=== PATIENT | female | born 2000 | race Caucasian/White ===

== ENCOUNTER 2021-07-11 10:07 | Emergency (ER) | payer OTHER, SELFPAY ==
[2021-07-11 10:07] VITALS: BP 126/78; PULSE 79; RESP 16; TEMP 36.6; BMI 36.0
--- NOTE | 2021-07-11 10:44 | CT_ITS ---
EXAM: CT ABDOMEN AND PELVIS WITHOUT INTRAVENOUS CONTRAST CLINICAL INDICATION: Left flank pain TECHNIQUE: Helically acquired images were obtained of the abdomen and pelvis without intravenous contrast. This CT exam was performed using one or more of the following dose reduction techniques: automated exposure control, adjustment of the mA and/or kV according to patient size, and/or use of iterative reconstruction technique. This report was created using [employer] report generation technology. COMPARISON: None. FINDINGS: LOWER THORAX: Unremarkable. Lung bases are clear. No cardiomegaly. No significant pericardial effusion. ABDOMEN: LIVER: Unremarkable. Homogeneous. GALLBLADDER AND BILE DUCTS: Unremarkable. No calcified gallstones. No gallbladder distention or wall edema. No intra- or extrahepatic biliary ductal dilation. PANCREAS: Unremarkable. No focal cystic mass. SPLEEN: Unremarkable. Normal size without focal cystic or solid mass. ADRENALS: Unremarkable. No nodules. KIDNEYS AND URETERS: Unremarkable. Normal renal size and position. No hydronephrosis. STOMACH AND BOWEL: Unremarkable. No stomach or bowel distention. No focal inflammatory change. PELVIS: APPENDIX: No evidence of acute appendicitis. BLADDER: Unremarkable. REPRODUCTIVE: Unremarkable as visualized. No mass. ABDOMEN and PELVIS: INTRAPERITONEAL SPACE: Unremarkable. No ascites or other fluid collection. No free air. BONES/JOINTS: Unremarkable. No suspicious lytic or blastic abnormality. SOFT TISSUES: Unremarkable. No discrete abdominal or pelvic wall hernia. VASCULATURE: Unremarkable. Abdominal aorta is non-dilated. LYMPH NODES: Unremarkable. No enlarged lymph nodes. CT/Abdomen/Pelvis without Cont IMPRESSION: No hydronephrosis or urinary tract calcifications. Electronically Signed: Sina Guillen MD ([place]) at 11:26 EDT , Service support ,
[2021-07-11] MEDS: 0.9% Normal Saline 1,000 ML 1000 ML IV (10:51)
[2021-07-11 10:56] LABS: Absolute Lymphocyte Count 2.43 X10^3/uL (0.83-4.51); Absolute Neutrophil Count 5.4 X10^3/uL (2.0-7.7); Basophil# 0.04 X10^3/uL; Basophil% 0.5 % (0-1); Eosinophil# 0.21 X10^3/uL; Eosinophils% 2.5 % (0-5); Hematocrit 42.3 % (37-47); Hemoglobin 13.7 g/dL (12.0-15.0); Lymphocyte # 2.43 X10^3/ul (0.83-4.51); Lymphocyte % 28.4 % (19-41); Mean Corp Hgb Conc 32.4 g/dL (32-36); Mean Corpuscular Hgb 29.5 pg (27.0-32.0); Mean Platelet Vol. 10.4 fl (6.2-12.0); Monocyte% 4.7 % (0-10); NRBC Flagged by Analyzer 0 % (0-5); Neutrophil # 5.39 X10^3/uL (2.7-7.7); Platelet Count 263 K/mm3 (150-450); RBC Distribution Width CV 12.8 % (11.6-14.6); RBC Distribution Width SD 42.4 fl (35.1-43.9); Red Blood Count 4.65 M/mm3 (4.2-5.4); White Blood Count 8.6 K/mm3 (4.4-11.0)
[2021-07-11 10:58] LABS: Mucous, Urine 0 SEEN /hpf (<or=2+); Red Blood Cells-Urine 0 SEEN /hpf (0-5)
[2021-07-11 11:00] LABS: Internal QC Validated? YES +Cl - CLEAR BKGD; Pregnancy, Serum, hCG Quali. NEGATIVE Negative
[2021-07-11 11:00] LABS: Color, Urine Yellow (Yellow); Glucose, Dipstick Normal (Normal); Ketone-Dipstick Negative (Negative); Leukocyte Esterase-Dipstick 500 /ul (Negative); Nitrite-Dipstick Negative (Negative); Occult Blood-Urine Negative /ul (Negative); Protein-Dipstick Negative (Negative); Urine Bilirubin Dipstick Negative (Negative); Urine Clarity Sl. Cloudy (Clear); Urine Urobilinogen Normal (Normal)
--- NOTE | 2021-07-11 11:03 | ED.VIS.GI ---
HPI HPI - GI History of Present Illness Chief Complaint: Flank Pain Informant: patient Abdominal Pain/Flank Pain Onset: Days (4-5) Context: Gradual Onset Timing: Continuous Quality: Cramping and Stabbing Location: LLQ and Left Flank Worsened by: Nothing Relieved by: - (Midol) Nausea/Vomiting/Emesis GI Symptom: Negative for Nausea and Vomiting Diarrhea/Melena/Hematochezia GI Symptom: Negative for Diarrhea, Melena and Hematochezia Associated Symptoms Associated Symptoms: Negative for Dysuria and Hematuria Narrative Narrative: Patient presents with left flank pain that has been getting worse over the last 4 to 5 days. Patient states that it is in her left lower flank and radiates to her left lower abdomen. Patient states that she took Midol yesterday which did help with the pain. Patient states she took it again today and had no improvement of her pain. Patient describes the pain as cramping and stabbing. Patient states it has been constant. Patient states it is gradually getting worse. Patient denies any nausea or vomiting. Patient denies any diarrhea or melena or hematochezia. Patient denies any dysuria or hematuria. Patient states she went to an urgent care today. Patient states she was told she had bacteria in her urine and was referred here for further testing. PFSH [facility] Medical History no medical history no medical history Home Medications ciprofloxacin HCl 500 mg PO BID #14 tablet 07/11/21 [Rx Last Taken Unknown] Allergy/AdvReac Type Severity Reaction Status Date / Time amoxicillin Allergy Hives Verified 07/11/21 10:10 Surgical History no surgical history no surgical history Social History (Updated 07/11/21 @ 11:[address] Alexandre Elder, DO) Smoking Status: Current every day smoker tobacco type: cigarettes Smoking packs per day: 1 Smoking cigarettes per day: 20.0 ROS ROS ED Constitutional Constitutional ED: Denies chills or fever(s) Eyes Eyes: Denies blurry vision or change in vision ENT ENT ED: Denies rhinorrhea or sore throat Cardiovascular Cardiovascular: Denies chest pain or palpitations Respiratory/Chest Respiratory/Chest: Denies cough or dyspnea Gastrointestinal Gastrointestinal: Reports abdominal pain; Denies nausea or vomiting Genitourinary Genitourinary ED: Denies dysuria or hematuria Musculoskeletal Musculoskeletal: Reports back pain; Denies neck pain Integumentary Denies abscess or rash Neurologic Neurologic: Denies headache(s) or weakness Allergic/Immunologic Allergic/Immunologic ED: Denies mouth swelling or urticaria EXAM Physical Exam Const Vital Signs: 07/11/21 10:07 07/11/21 12:07 Temperature 97.9 F Temperature Source Temporal Pulse Rate 79 Respiratory Rate 16 16 Blood Pressure 126/78 H Blood Pressure Mean 94 Positive well nourished and well developed General Appearance ED: well developed HEENT Reports moist mucous membranes Neck supple and no JVD Resp normal respiratory effort and clear to auscultation bilaterally Cardio regular rate, regular rhythm and no murmurs GI normal to inspection, nondistended, normoactive bowel sounds and non-distended Auscultation: normoactive bowel sounds Palpation: soft and tender LLQ and LUQ; Negative for guarding or rebound tenderness present Extremity normal to inspection General Extremety ED: Negative for edema or tenderness General Extremity: Negative for edema Neuro oriented x3, CN's II-XII intact bilaterally and no sensory deficits noted Sensorium / Orientation: alert Motor Exam: strength 5/5 throughout Psych mental status grossly normal Skin no rashes or lesions noted MDM MDM MDM Narrative Medical decision making narrative: Patient was given IV fluids here. CBC was within normal limits. Comprehensive metabolic profile was essentially within normal limits. Urinalysis shows leukocyte esterase of 500 with 25-50 white blood cells and 1+ bacteria. CT scan of the abdomen pelvis was obtained. There is no acute abnormality noted. There is no evidence of pyelonephritis on CT scan. Patient was advised of her findings. Patient was given her first dose of Cipro here. Patient was given a prescription for Cipro. Patient was instructed to drink plenty of fluids. Patient was instructed to follow-up with her primary care physician in 5 to 7 days. Patient understood and was agreeable with the plan. All questions were answered. Lab Data Attestation: I reviewed the patient's lab results. Labs: Laboratory Results - last 24 hr 07/11/21 07/11/21 07/11/21 10:25 10:35 10:35 WBC 8.6 RBC 4.65 Hgb 13.7 Hct 42.3 MCV 91.0 MCH 29.5 MCHC 32.4 RDW Std Deviation 42.4 RDW Coeff of Orestes 12.8 Plt Count 263 MPV 10.4 Immature Gran % (Auto) 0.900 Neut % (Auto) 63.0 Lymph % (Auto) 28.4 Wilkes % (Auto) 4.7 Eos % (Auto) 2.5 Baso % (Auto) 0.5 Absolute Neuts (auto) 5.4 Absolute Lymphs (auto) 2.43 Nucleated RBC % 0 Sodium 137 Potassium 3.7 Chloride 106 Carbon Dioxide 25.0 Anion Gap 6 BUN 10 Creatinine 0.74 Estim Creat Clear Calc 102.10 Est GFR (MDRD) Af Amer 124 Est GFR (MDRD) Non-Af 103 BUN/Creatinine Ratio 13.4 Glucose 124 H Calcium 8.4 L Total Bilirubin 0.30 AST 19 ALT 26 Alkaline Phosphatase 86 Total Protein 7.4 Albumin 3.4 Globulin 4.0 Albumin/Globulin Ratio 0.8 L Serum , Qual Urine Color Yellow Urine Clarity Sl. Cloudy Urine pH 6.0 Ur Specific [place] 1.010 Urine Protein Negative Urine Glucose (UA) Normal Urine Ketones Negative Urine Occult Blood Negative Urine Nitrite Negative Urine Bilirubin Negative Urine Urobilinogen Normal Ur Leukocyte Esterase 500 H Urine RBC 0 SEEN Urine WBC 25-50 SEEN Ur Squamous Epith Cells 0-5 SEEN Urine Bacteria 1+ Urine Mucus 0 SEEN 07/11/21 10:35 WBC RBC Hgb Hct MCV MCH MCHC RDW Std Deviation RDW Coeff of Orestes Plt Count MPV Immature Gran % (Auto) Neut % (Auto) Lymph % (Auto) Wilkes % (Auto) Eos % (Auto) Baso % (Auto) Absolute Neuts (auto) Absolute Lymphs (auto) Nucleated RBC % Sodium Potassium Chloride Carbon Dioxide Anion Gap BUN Creatinine Estim Creat Clear Calc Est GFR (MDRD) Af Amer Est GFR (MDRD) Non-Af BUN/Creatinine Ratio Glucose Calcium Total Bilirubin AST ALT Alkaline Phosphatase Total Protein Albumin Globulin Albumin/Globulin Ratio Serum , Qual NEGATIVE Urine Color Urine Clarity Urine pH Ur Specific [place] Urine Protein Urine Glucose (UA) Urine Ketones Urine Occult Blood Urine Nitrite Urine Bilirubin Urine Urobilinogen Ur Leukocyte Esterase Urine RBC Urine WBC Ur Squamous Epith Cells Urine Bacteria Urine Mucus Radiography Diagnostic Testing: Radiology Impression Abdomen/Pelvis CT 07/11/21 10:44 IMPRESSION: No hydronephrosis or urinary tract calcifications. Electronically Signed: Sina Guillen MD ([place]) at 11:26 EDT , Service support , Discharge Plan Triage Chief Complaint: Flank Pain ED Provider: Alexandre Elder Dx/Rx/DC Orders Clinical Impression: Urinary tract infection Instructions: ED CYSTITIS Female Adult Prescriptions: New ciprofloxacin HCl [ciprofloxacin HCl] 500 MG tablet 500 mg PO BID Qty: 14 RF: 0 Primary Care Provider: Care Physician,No Primary Referrals: Brian Aviles MD [NON-STAFF] - 5-7 Days Care Physician,No Primary [Primary Care Provider] - Disposition Disposition: Home, Self Care
[2021-07-11 11:07] LABS: Bacteria 1+ /hpf (None Seen); Squamous Epithelial Cells - UA 0-5 SEEN /hpf (5-10); White Blood Cells 25-50 SEEN /hpf (0-5)
[2021-07-11 11:09] LABS: ALB/GLOB Ratio 0.8 RATIO (0.9-2.4); AST(SGOT) 19 U/L (15-37); Alanine Aminotransfer ALT/SGPT 26 U/L (13-56); Albumin, Serum 3.4 g/dL (3.2-5.0); Alkaline Phosphatase 86 U/L (45-117); Anion Gap 6 (5-15); BUN 10 mg/dL (7-18); BUN/Creat Ratio 13.4 RATIO (10-20); Calcium,Total 8.4 mg/dL (8.5-10.1); Chloride 106 mmol/L (98-107); Creatinine, Serum 0.74 mg/dL (0.55-1.02); EST Glomerular Filtration Rate 103 mL/min (>60); Est Glom Filt Rate - Afr Amer 124 mL/min (>60); Glucose 124 mg/dL (74-106); Potassium 3.7 mmol/L (3.5-5.1); Protein, Total 7.4 g/dL (6.4-8.2); Sodium Level 137 mmol/L (136-145)
[2021-07-11 12:07] VITALS: RESP 16
[2021-07-11] MEDS: Ciprofloxacin 500 MG Tablet PO (12:40)
== END 2021-07-11 12:44 | disposition home or self-care (01) ==
PROVIDERS: Emergency Provider Emergency Medicine
DX: N39.0 Urinary tract infection, site not specified (principal); F17.210 Nicotine dependence, cigarettes, uncomplicated
CPT/HCPCS: 74176; 80053; 81001; 84703; 85025; 96360; 99285; J7030; A4216

== ENCOUNTER 2022-08-20 01:14 | Emergency (ER) | payer OTHER, SELFPAY ==
[2022-08-20 01:17] VITALS: BP 109/66; PULSE 89; RESP 16; TEMP 36.8; O2SAT 98; BMI 28.5
[2022-08-20] MEDS: Ketorolac 60 MG/2 ML Vial IM (02:45)
[2022-08-20] MEDS: HYDROcodone Bitartrate/Apap 5/325 Tablet PO (02:46)
[2022-08-20] MEDS: Orphenadrine 60 MG/2 ML Ampul IM (02:46)
[2022-08-20 03:24] VITALS: PULSE 74; RESP 16; O2SAT 95
--- NOTE | 2022-08-20 04:15 | ED.VIS.BACK ---
HPI History of Present Illness Chief Complaint: Back Informant: patient Narrative Narrative: 22-year-old female states that she was lying in bed when she developed pain in the right low back. She states is worse with movement and with touch. No radiation of the pain. No known inciting trauma or activity. No red flag history. No vomiting or diarrhea. PFSH PFSH Home Medications cyclobenzaprine 10 mg tablet 10 mg PO TID PRN Muscle Spasm #20 TABLETS 08/20/22 [Rx Last Taken Unknown] hydrocodone-acetaminophen 5-325mg 5mg-325mg 1 tab PO Q6H PRN PRN Pain 3 days #10 TABLETS 08/20/22 [Rx Last Taken Unknown] lamotrigine 25 mg tablet 25 mg PO DAILY 08/20/22 [History Last Taken Unknown] Allergy/AdvReac Type Severity Reaction Status Date / Time amoxicillin Allergy Hives Verified 07/11/21 10:10 prednisone AdvReac Other Verified 08/20/22 01:16 Social History Smoking Status: Current every day smoker tobacco type: cigarettes ROS ROS ED Constitutional Constitutional ED: Denies chills or weight loss Eyes Eyes: Denies change in vision or diplopia ENT ENT ED: Denies ear pain, rhinorrhea or sore throat Cardiovascular Cardiovascular: Denies chest pain, orthopnea, palpitations or racing heartbeat Respiratory/Chest Respiratory/Chest: Denies cough, dyspnea or orthopnea Gastrointestinal Gastrointestinal: Denies abdominal pain, diarrhea, nausea or vomiting Genitourinary Genitourinary ED: Denies dysuria, hematuria or urinary frequency Musculoskeletal Musculoskeletal: Reports back pain; Denies arthralgias, myalgias or neck pain Integumentary Denies abscess or rash Neurologic Neurologic: Denies headache(s) or weakness Psychiatric Psychiatric: Denies anxiety, depression, suicidal ideation or suicidal thoughts Endocrine Endocrinology: Denies polydipsia, polyphagia or polyuria Allergic/Immunologic Allergic/Immunologic ED: Denies mouth swelling, tongue swelling or urticaria EXAM Physical Exam Const Vital Signs: 08/20/22 01:17 08/20/22 03:24 Temperature 98.2 F Temperature Source Temporal Pulse Rate 89 74 Respiratory Rate 16 16 Blood Pressure 109/66 Blood Pressure Mean 80 Pulse Ox 98 95 Oxygen Delivery Method Room Air Positive well nourished and well developed General Appearance ED: well developed HEENT Reports normocephalic, head/scalp atraumatic and moist mucous membranes Eyes PERRL and EOMs intact bilaterally Neck no lymphadenopathy, supple and no JVD Resp normal respiratory effort and clear to auscultation bilaterally Cardio regular rate, regular rhythm and no murmurs GI normal to inspection, nondistended, normoactive bowel sounds and non-tender Palpation: soft Back/Spine no CVA tenderness Back/Spine Narrative: Patient notes tenderness to palpation over the right lumbar paraspinal musculature. She winces with the lightest touch of the skin and also with palpation of the musculature. There is no SI joint tenderness. No piriformis tenderness. There is no CVA tenderness. This appears isolated to the right musculature Extremity normal to inspection General Extremety ED: Negative for edema General Extremity: Negative for edema Neuro oriented x3 and CN's II-XII intact bilaterally Sensorium / Orientation: alert Motor Exam: strength 5/5 throughout Psych mental status grossly normal Mood & Affect: Negative for depressed or tearful Skin no rashes or lesions noted and no wounds MDM MDM MDM Narrative Medical decision making narrative: The patient will be given a dose of Toradol hydrocodone and Norflex. She will be given a prescription for some hydrocodone and cyclobenzaprine instructions for anti-inflammatories. Would recommend heat gentle stretching follow-up with primary care Discharge Plan Triage Chief Complaint: Back ED Provider: Conrad George Dx/Rx/DC Orders Clinical Impression: Acute low back pain Instructions: ED Back Pain (Acute or Chronic) Prescriptions: New cyclobenzaprine [cyclobenzaprine] 10 mg tablet 10 mg PO TID PRN (Reason: Muscle Spasm) Qty: 20 0RF hydrocodone-acetaminophen [hydrocodone-acetaminophen] 5-325 mg tablet 1 tab PO Q6H PRN PRN (Reason: Pain) 3 Days Qty: 10 0RF No Action lamotrigine 25 mg tablet 25 mg PO DAILY Label Comments: TAKE 1 TABLET BY MOUTH EVERY DAY AFTER DINNER Primary Care Provider: Sara Doctor,Out of Referrals: Sara Doctor,Out of [Primary Care Provider] - 3-5 Days if not improving Disposition Disposition: Home, Self Care Discharge Date/Time: 08/20/22 03:25
== END 2022-08-20 03:25 | disposition home or self-care (01) ==
PROVIDERS: Emergency Provider Emergency Medicine; Visit Provider Emergency Medicine
DX: M54.50 Low back pain, unspecified (principal); F17.210 Nicotine dependence, cigarettes, uncomplicated
CPT/HCPCS: 96372; 99283

== ENCOUNTER 2022-12-29 11:10 | Emergency (ER) | payer OTHER, SELFPAY ==
[2022-12-29 11:11] VITALS: BP 142/74; PULSE 113; RESP 14; TEMP 36.6; O2SAT 100; BMI 27.4
--- NOTE | 2022-12-29 11:26 | US_ITS ---
STUDY: FIRST TRIMESTER OBSTETRICAL ULTRASOUND REASON FOR EXAM: Female, 22 years old . Vaginal bleeding. LMP: December 10, 2022. TECHNIQUE: Transvaginal TECHNICAL QUALITY: Adequate. PRIOR ULTRASOUND: None. FINDINGS: There is visualization of a single gestational sac in a normal intrauterine position. The mean sac diameter (MSD) measures 8.5 mm, indicating an estimated gestational age (EGA) of 5 weeks, 5 days. The gestational sac shape is within normal limits. There is a visualized yolk sac. The yolk sac measures 2.3 mm. The placenta is non-visualized. There is visualization of a live embryo. The crown-rump length (CRL) measures 1.5 mm,. The gestational age is indeterminateThere is demonstrated cardiac activity with a heart rate of 68 bpm. The estimated gestation age (EGA) by LMP is 2 weeks, 5 days. The estimated date of delivery (KAREN) by LMP is September 16, 2023. The estimated gestation age (EGA) by US is 5 weeks, 5 days. The estimated date of delivery (KAREN) by US is August 26, 2023. The uterus measures 7.9 cm x 5.7 cm x 5.3 cm. Thickened endometrium. There is no demonstrated uterine fibroid. The cervix is closed. The right ovary measures 3.1 cm x 2.6 cm x 2.3 cm.. Findings suggestive of a 2.1 cm x 1.9 cm x 1.9 cm heterogeneous mass in the ovary. This may represent an ectopic . There is no visualized right adnexal mass or complex lesion. The left ovary measures 1.8 cm x 1.9 cm x 1.6 cm.. There is no left ovarian cyst. There is no visualized left adnexal mass or complex lesion. There is no fluid in the cul de sac. US/Transvaginal w/Preg US IMPRESSION: Findings suggestive of a live intrauterine gestation as well as an ectopic in the right ovary. Electronically Signed: Marcello Monteiro MD at 15:20 EDT ,
--- NOTE | 2022-12-29 11:46 | ED.VIS.FEGU ---
HPI <JOSEFA Dailey - Last Filed: 12/29/22 16:05> HPI - Female History of Present Illness Chief Complaint: Narrative Narrative: 22-year-old female presents with concern for ectopic . She states she had a period from December 10- but it was just light spotting. Because it was abnormal she took a home test which was positive. She followed up with a clinic in [place] on 12/27 and had blood work showing a hCG quant of 16,620 and a transvaginal ultrasound that did not show a gestational sac according the patient. She spoke with her [employer] SUPERINTENDENT today who recommended she come in for repeat blood work and ultrasound. Over this month she has had intermittent spotting/clotting and wears 1 pad a day. She had 1 episode of abdominal pain last week but none since then. She has no history of known before this. She states her only health problem is bipolar and takes Topamax. PFSH <JOSEFA Dailey - Last Filed: 12/29/22 16:05> PFSH Home Medications cephalexin 500 mg capsule 500 mg PO TID 5 days #15 caps 12/29/22 [Rx Last Taken Unknown] Allergy/AdvReac Type Severity Reaction Status Date / Time amoxicillin Allergy Hives Verified 12/29/22 11:11 prednisone AdvReac Other Verified 12/29/22 11:11 Social History Smoking Status: Current every day smoker tobacco type: cigarettes ROS <JOSEFA Dailey - Last Filed: 12/29/22 16:05> ROS ED ROS Narrative Constitutional: Negative for fever, chills, malaise. CVS: Negative for palpitations, chest pain. Respiratory: Negative for shortness of breath. GI: Negative for abdominal pain, nausea, vomiting. : Negative for dysuria. EXAM <JOSEFA Dailey - Last Filed: 12/29/22 16:05> Physical Exam Narrative Exam Narrative: CONST: Patient sitting in no acute distress. EYES: Normal inspection. ENT: Normal inspection, moist mucous membranes. NECK: Normal inspection. RESP: No respiratory distress, CTAB. CVS: Regular rate and rhythm, no murmur, no gallop. ABD: Soft and nontender, no guarding or rebound, nondistended. SKIN: Color normal, no rash, warm, dry, intact. EXTREMITIES: Normal appearance, no pedal edema. NEURO: Oriented x4. PSYCH: Normal affect. Const Vital Signs: 12/29/22 11:11 Temperature 98 F Temperature Source Temporal Pulse Rate 113 H Respiratory Rate 14 Blood Pressure 142/74 H Blood Pressure Mean 96 Pulse Ox 100 Oxygen Delivery Method Room Air <Dr. Eduardo Burr DO - Last Filed: 12/29/22 14:19> Physical Exam Const Vital Signs: 12/29/22 11:11 Temperature 98 F Temperature Source Temporal Pulse Rate 113 H Respiratory Rate 14 Blood Pressure 142/74 H Blood Pressure Mean 96 Pulse Ox 100 Oxygen Delivery Method Room Air MDM <JOSEFA Dailey - Last Filed: 12/29/22 16:05> MDM MDM Narrative Medical decision making narrative: History gathered from: Patient, significant other Patient has a positive home test and is having intermittent bleeding. No abdominal pain. She appears well and nontoxic. Heart rate is 113 with otherwise normal vital signs. She has a soft, nontender abdomen. CBC and BMP are within normal limits. hCG quant from two days ago was 16,600 and is trending down at 14,081. Rh type is positive so RhoGAM is not indicated. UA shows asymptomatic bacteriuria so she will be treated with Keflex. Transvaginal ultrasound showed a live IUP at estimated 5 weeks, 5 days. There is also a heterogenous right ovary mass which may represent an ectopic . I spoke with on-call [employer] SUPERINTENDENT, Dr. Billy, who states that the likelihood this is a heterotopic is rare especially as the patient has no abdominal pain. It is possible to luteal cyst. She recommended following up with her [employer] SUPERINTENDENT on Sunday but if she develops abdominal pain to return to the ER. Patient sees Dr. Segundo in [place]. When I relayed these findings to the patient she states she actually wants to get an and plans to return to the clinic on Sunday. Since she did not know what providers are there are I recommended she also see her established [employer] SUPERINTENDENT to follow-up on the ovarian mass to rule out ectopic on Sunday. She expressed understanding and was discharged in stable condition. Differential: Live IUP, threatened , ectopic I have personally performed a face to face assessment of the patient and have reviewed the HARESH Note. I performed a substantive portion of the visit including all aspects of the following. My maddox findings include: History is [vaginal bleeding early with a positive hCG and no intrauterine on prior ultrasound] Exam is [unremarkable, abdomen soft, nontender with no pulsatile masses or evidence of herniation perforation or obstruction] Medical Decision Making [we will obtain transvaginal ultrasound to rule out miscarriage, ectopic. Will obtain blood work to rule out Rh- status, significant anemia or UTI.] We will disposition the patient based on results of studies, images, vital signs, repeat assessment and shared decision making. Lab Data Attestation: I reviewed the patient's lab results. Labs: Laboratory Results - last 24 hr 12/29/22 12/29/22 12/29/22 11:40 11:40 11:50 WBC RBC Hgb Hct MCV MCH MCHC RDW Std Deviation RDW Coeff of Orestes Plt Count MPV Immature Gran % (Auto) Neut % (Auto) Lymph % (Auto) [place] % (Auto) Eos % (Auto) Baso % (Auto) Absolute Neuts (auto) Absolute Lymphs (auto) Nucleated RBC % Sodium Potassium Chloride Carbon Dioxide Anion Gap BUN Creatinine Estim Creat Clear Calc Est GFR (MDRD) Af Amer Est GFR (MDRD) Non-Af BUN/Creatinine Ratio Glucose Calcium HCG, Quant 76746 H Urine Color Yellow Urine Clarity Sl. Cloudy Urine pH 7.0 Ur Specific [place] 1.010 Urine Protein Negative Urine Glucose (UA) Normal Urine Ketones Negative Urine Occult Blood Negative Urine Nitrite Negative Urine Bilirubin Negative Urine Urobilinogen 1 H Ur Leukocyte Esterase 25 H Urine RBC 0 SEEN Urine WBC 0-5 SEEN Ur Squamous Epith Cells 5-10 SEEN Urine Bacteria 2+ Urine Mucus 1+ Blood Type O POSITIVE 12/29/22 12/29/22 13:00 13:00 WBC 9.3 RBC 4.50 Hgb 13.8 Hct 39.9 MCV 88.7 MCH 30.7 MCHC 34.6 RDW Std Deviation 38.5 RDW Coeff of [place]rest[place] 11.9 Plt Count 235 MPV 10.5 Immature Gran % (Auto) 0.400 Neut % (Auto) 71.4 H Lymph % (Auto) 20.4 [place] % (Auto) 5.8 Eos % (Auto) 1.4 Baso % (Auto) 0.6 Absolute Neuts (auto) 6.7 Absolute Lymphs (auto) 1.90 Nucleated RBC % 0 Sodium 143 Potassium 3.6 Chloride 113 H Carbon Dioxide 22.0 Anion Gap 8 BUN 9 Creatinine 0.68 Estim Creat Clear Calc 110.16 Est GFR (MDRD) Af Amer 135 Est GFR (MDRD) Non-Af 112 BUN/Creatinine Ratio 13.2 Glucose 99 Calcium 8.7 HCG, Quant Urine Color Urine Clarity Urine pH Ur Specific [place] Urine Protein Urine Glucose (UA) Urine Ketones Urine Occult Blood Urine Nitrite Urine Bilirubin Urine Urobilinogen Ur Leukocyte Esterase Urine RBC Urine WBC Ur Squamous Epith Cells Urine Bacteria Urine Mucus Blood Type Radiography Diagnostic Testing: Clinical Impression(s) from Imaging Studies Obstetrics Ultrasound 12/29/22 11:26 IMPRESSION: Findings suggestive of a live intrauterine gestation as well as an ectopic in the right ovary. Electronically Signed: Marcello Monteiro MD at 15:20 EDT , <Dr. Eduardo Burr, DO - Last Filed: 12/29/22 14:19> [facility] MDM Narrative Medical decision making narrative: I have personally performed a face to face assessment of the patient and have reviewed the HARESH Note. I performed a substantive portion of the visit including all aspects of the following. My maddox findings include: History is [vaginal bleeding early with a positive hCG and no intrauterine on prior ultrasound] Exam is [unremarkable, abdomen soft, nontender with no pulsatile masses or evidence of herniation perforation or obstruction] Medical Decision Making [we will obtain transvaginal ultrasound to rule out miscarriage, ectopic. Will obtain blood work to rule out Rh- status, significant anemia or UTI.] We will disposition the patient based on results of studies, images, vital signs, repeat assessment and shared decision making. Lab Data Labs: Laboratory Results - last 24 hr 12/29/22 12/29/22 12/29/22 11:40 11:40 11:50 WBC RBC Hgb Hct MCV MCH MCHC RDW Std Deviation RDW Coeff of [place]rest[place] Plt Count MPV Immature Gran % (Auto) Neut % (Auto) Lymph % (Auto) [place] % (Auto) Eos % (Auto) Baso % (Auto) Absolute Neuts (auto) Absolute Lymphs (auto) Nucleated RBC % Sodium Potassium Chloride Carbon Dioxide Anion Gap BUN Creatinine Estim Creat Clear Calc Est GFR (MDRD) Af Amer Est GFR (MDRD) Non-Af BUN/Creatinine Ratio Glucose Calcium HCG, Quant 51391 H Urine Color Yellow Urine Clarity Sl. Cloudy Urine pH 7.0 Ur Specific [place] 1.010 Urine Protein Negative Urine Glucose (UA) Normal Urine Ketones Negative Urine Occult Blood Negative Urine Nitrite Negative Urine Bilirubin Negative Urine Urobilinogen 1 H Ur Leukocyte Esterase 25 H Urine RBC 0 SEEN Urine WBC 0-5 SEEN Ur Squamous Epith Cells 5-10 SEEN Urine Bacteria 2+ Urine Mucus 1+ Blood Type O POSITIVE 12/29/22 12/29/22 13:00 13:00 WBC 9.3 RBC 4.50 Hgb 13.8 Hct 39.9 MCV 88.7 MCH 30.7 MCHC 34.6 RDW Std Deviation 38.5 RDW Coeff of [place]rest[place] 11.9 Plt Count 235 MPV 10.5 Immature Gran % (Auto) 0.400 Neut % (Auto) 71.4 H Lymph % (Auto) 20.4 [place] % (Auto) 5.8 Eos % (Auto) 1.4 Baso % (Auto) 0.6 Absolute Neuts (auto) 6.7 Absolute Lymphs (auto) 1.90 Nucleated RBC % 0 Sodium 143 Potassium 3.6 Chloride 113 H Carbon Dioxide 22.0 Anion Gap 8 BUN 9 Creatinine 0.68 Estim Creat Clear Calc 110.16 Est GFR (MDRD) Af Amer 135 Est GFR (MDRD) Non-Af 112 BUN/Creatinine Ratio 13.2 Glucose 99 Calcium 8.7 HCG, Quant Urine Color Urine Clarity Urine pH Ur Specific [place] Urine Protein Urine Glucose (UA) Urine Ketones Urine Occult Blood Urine Nitrite Urine Bilirubin Urine Urobilinogen Ur Leukocyte Esterase Urine RBC Urine WBC Ur Squamous Epith Cells Urine Bacteria Urine Mucus Blood Type Radiography Diagnostic Testing: Clinical Impression(s) from Imaging Studies Obstetrics Ultrasound 12/29/22 11:26 IMPRESSION: Findings suggestive of a live intrauterine gestation as well as an ectopic in the right ovary. Electronically Signed: Marcello Monteiro MD at 15:20 EDT , Discharge Plan Triage Chief Complaint: ED Midlevel Provider: Milana Baxter ED Provider: Eduardo Burr Dx/Rx/DC Orders Clinical Impression: Miscarriage, threatened, early Instructions: ED Possible Miscarriage ... Prescriptions: New cephalexin 500 mg capsule 500 mg PO TID 5 Days Qty: 15 0RF Primary Care Provider: Ranjeet Barroso Referrals: [facility] Doctor,Out of [Non-Staff] - Activity Restrictions/Additional Instructions: There was a live of 5 weeks, 5 days. There is also right ovary mass. This could be a cyst but is possible could be an ectopic . I recommend seeing Dr. Segundo on Sunday. If you develop abdominal pain return to emergency room immediately. Disposition Disposition: Home, Self Care
[2022-12-29 11:54] LABS: Red Blood Cells-Urine 0 SEEN /hpf (0-5)
[2022-12-29 11:57] LABS: Color, Urine Yellow (Yellow); Glucose, Dipstick Normal (Normal); Ketone-Dipstick Negative (Negative); Leukocyte Esterase-Dipstick 25 /ul (Negative); Nitrite-Dipstick Negative (Negative); Occult Blood-Urine Negative /ul (Negative); Protein-Dipstick Negative (Negative); Urine Bilirubin Dipstick Negative (Negative); Urine Clarity Sl. Cloudy (Clear); Urine Urobilinogen 1 mg/dl (Normal)
[2022-12-29 12:07] LABS: Squamous Epithelial Cells - UA 5-10 SEEN /hpf (5-10)
[2022-12-29 12:09] LABS: Bacteria 2+ /hpf (None Seen); Mucous, Urine 1+ /hpf (<or=2+); White Blood Cells 0-5 SEEN /hpf (0-5)
[2022-12-29 13:05] LABS: hCG Titer Quant., Serum 14081 mIU/mL (1-3)
[2022-12-29 13:09] LABS: Absolute Neutrophil Count 6.7 X10^3/uL (2.0-7.7); Basophil# 0.06 X10^3/uL; Basophil% 0.6 % (0-1); Eosinophil# 0.13 X10^3/uL; Eosinophils% 1.4 % (0-5); Hematocrit 39.9 % (37-47); Hemoglobin 13.8 g/dL (12.0-15.0); Lymphocyte % 20.4 % (19-41); Mean Corp Hgb Conc 34.6 g/dL (32-36); Mean Corpuscular Hgb 30.7 pg (27.0-32.0); Mean Corpuscular Volume 88.7 fL (81-99); Mean Platelet Vol. 10.5 fl (6.2-12.0); Monocyte# 0.54 X10^3/uL; Monocyte% 5.8 % (0-10); NRBC Flagged by Analyzer 0 % (0-5); Neutrophil # 6.66 X10^3/uL (2.7-7.7); Neutrophil % 71.4 % (47-70); Platelet Count 235 K/mm3 (150-450); RBC Distribution Width CV 11.9 % (11.6-14.6); RBC Distribution Width SD 38.5 fl (35.1-43.9); White Blood Count 9.3 K/mm3 (4.4-11.0)
[2022-12-29 13:20] LABS: Anion Gap 8 (5-15); BUN 9 mg/dL (7-18); BUN/Creat Ratio 13.2 RATIO (10-20); Calcium,Total 8.7 mg/dL (8.5-10.1); Chloride 113 mmol/L (98-107); Creatinine, Serum 0.68 mg/dL (0.55-1.02); EST Glomerular Filtration Rate 112 mL/min (>60); Est Glom Filt Rate - Afr Amer 135 mL/min (>60); Estimated Creatinine Clearance 110.16 ml/min; Glucose 99 mg/dL (74-106); Potassium 3.6 mmol/L (3.5-5.1); Sodium Level 143 mmol/L (136-145)
[2022-12-29 16:02] VITALS: BP 135/88; PULSE 95; RESP 16; O2SAT 98
== END 2022-12-29 16:43 | disposition home or self-care (01) ==
PROVIDERS: Physician Assistant; Emergency Provider Emergency Medicine; Visit Provider Emergency Medicine
DX: O20.0 Threatened abortion (principal); F31.9 Bipolar disorder, unspecified; F17.210 Nicotine dependence, cigarettes, uncomplicated; O99.331 Smoking (tobacco) complicating pregnancy, first trimester; O99.341 Other mental disorders complicating pregnancy, first trimester; Z3A.00 Weeks of gestation of pregnancy not specified
CPT/HCPCS: 76817; 80048; 81001; 84702; 85025; 86900; 86901; 99282; A4216